=== PATIENT | male | born 2005 | race Caucasian/White ===

== ENCOUNTER 2023-01-18 20:58 | Emergency (ER) | payer OTHER ==
[~2023-01-18] VITALS: Ht 188 cm; Wt 84.1 kg
[2023-01-18 21:06] VITALS: TEMP 98.4
[2023-01-18 23:09] VITALS: BP 127/74; PULSE 89
== END 2023-01-18 23:09 | disposition home or self-care (01) ==
LOC: COL.ER 20:58
DX: S20.212A Contusion of left front wall of thorax, initial encounter (principal); Z28.310 Unvaccinated for COVID-19; W18.30XA Fall on same level, unspecified, initial encounter; W22.8XXA Striking against or struck by other objects, initial encounter